=== PATIENT | male | born 1975 | race Caucasian/White ===

== ENCOUNTER 2025-05-18 11:22 | Outpatient (AMB) | payer OTHER, SELFPAY ==
--- NOTE | 2025-05-18 11:28 | A.OFFPC_ITS ---
Vital Signs 05/18/25 11:35 Height 5 ft 8 in Weight 205 lb BMI 31.2 BP 128/80 Blood Pressure Location Rt brachial Position Sitting Pulse 153 H Pulse Source Pulse Oximeter Temp 98 F Temp Source Temporal Artery Scan Pulse Oximetry (%) 98 Oxygen Delivery Method Room Air Intake Visit Reasons: Physical New patient Director Of Institutional Research Required: No Accompanied by: Self / Same As Patient Allergies No Known Allergies Allergy (Verified 05/18/25 11:28) Medication List - Last Reconciled 05/30/25 by BELINDA Gagnon atorvastatin (Lipitor) 20 mg PO DAILY propranolol ER 60 mg PO BEDTIME sertraline 25 mg PO DAILY Tobacco use date assessed: 05/18/25 Dental Screening Dental Screen Date: 05/18/25 Did you have a dental visit in the last 12 months?: No Did you have a dental problem in the last 6 months where you did not have access to dental care?: No HPI HPI Comments History of Present Illness Details The patient is a 50-year-old male with anxiety, tachycardia, HLD and Obesity presenting to establish care and manage anxiety with palpitations. He reports episodes of anxiety, typically triggered by stress or physical overexertion, which occur approximately every month to month and a half. During these episodes, which last 15-25 minutes, he experiences his heart rate increasing to 150-160 bpm, a sensation of his heart jumping out of his chest, a feeling of being hit by a bat in the chest, profuse sweating, and shortness of breath. This is followed by his heart rate dropping to 40 bpm, leading to a near-fainting sensation and occasional brief blackouts. The patient has experienced a significant number of near-fainting episodes, catching himself approximately 25 times in the last three years. He has a histo ry of fainting at age 16, which resulted in a facial injury requiring plastic surgery. He was previously on metoprolol 10 mg once daily, but was switched to immediate-release propranolol 20 mg three times daily due to the fainting spells. He admits to inconsistent adherence, taking the propranolol about twice a day and rarely taking his atorvastatin 20 mg. Past cardiac workup, including a heart monitor and echocardiogram, was recommended a few years ago but not completed due to cost. The patient is overdue for a colonoscopy, which was delayed after he lost his job and insurance. Recent medical issues include a dental injury from his child, which required an implant and was complicated by an abscess. Medical History: - Anxiety with panic attacks - Tachycardia - History of syncope and near-syncope - Hyperlipidemia Patient was informed and verbally consented to the use of an ambient scribe for clinic note documentation during this visit. [facility], [facility] Medical History (Updated 05/30/25 @ 12:49 by BELINDA Gagnon) Annual physical exam Anxiety disorder with panic attacks Hyperlipidemia Medication management Tachycardia Family History (Updated 05/18/25 @ 11:41 by Dai Buckley MA) Mother No problems noted. Father No problems noted. Social History Housing: House Patient Tobacco Use Status: Never used Tobacco e-Cigarette/Vaping Use: Never Used service: No Current occupational status: employed Cognitive needs: No Hearing needs: No Vision needs: No Questionnaire PHQ-9 Over the last 2 weeks, how often have you been bothered by any of the following problems? 1. Little interest or pleasure in doing things: not at all 2. Feeling down, depressed, or hopeless: nearly every day 3. Trouble falling or staying asleep, or sleeping too much: not at all 4. Feeling tired or having little energy: several days 5. Poor appetite or overeating: not at all 6. Feeling bad about yourself - or that you are a failure or have let yourself or your family down: not at all 7. Trouble concentrating on things, such as reading the newspaper or watching television: not at all 8. Moving or speaking so slowly that other people could have noticed. Or the opposite - being so fidgety or restless that you have been moving around a lot more than usual: not at all 9. Thoughts that you would be better off or of hurting yourself in some way: not at all Total score: 4 Depression Screening Interpretation: Negative Depression Screening Done: Yes Source: Developed by Drs. Luis Alfredo Schneider, Nathalia Rm, Ge Bartholomew and colleagues, with an educational abraham from [employer]. Thrive Questionnaire Date Thrive assessed: 05/18/25 I am a: Patient Within the past 12 months, did the food you bought not last and you didn't have the money to get more?: Never true Within the past 12 months, did you worry whether your food would run out before you got money to buy more?: Never true Do you have trouble paying for medicines?: No Do you have trouble getting transportation to medical appointments?: No Do you have trouble paying your heating and electricity bill?: No Do you have trouble taking care of your child, family member or friend?: No Do you have trouble with day-to-day activities such as bathing, preparing meals, shopping, managing finances, etc.?: No Are you currently unemployed and looking for a job?: No Are you interested in more education?: No THRIVE Score: 0 AUDIT C Alcohol Use Questionnaire (AUDIT-C) 1. How often do you have a drink containing alcohol?: Monthly or less 2. How many drinks containing alcohol do you have on a typical day when you are drinking?: 1 or 2 3. How often do you have six or more drinks on one occasion?: Less than monthly Total Score: 2 JOSÉ-7 AMB Questionnaire JOSÉ-7 Date JOSÉ - 7 assessed: 05/18/25 Feeling nervous, anxious, or on edge: 3 = Nearly every day Not being able to stop or control worryin = Not at all Worrying too much about different things: 0 = Not at all Trouble relaxin = Not at all Being so restless that it is hard to sit still: 0 = Not at all Becoming easily annoyed or irritable: 0 = Not at all Feeling afraid as if something awful might happen: 0 = Not at all Total JOSÉ-7 score (0-4 normal; 5-9 mild; 10-14 moderate; 15-21 severe): 3 Source: Developed by Drs. Luis Alfredo Schneider, Nathalia Rm, Ge Bartholomew and colleagues, with an educational abraham from [employer]. JOSÉ-7 Assessment Billing JOSÉ-7 Assessment Tool: JOSÉ-7 Assessment 04355 Review of Systems Narrative - Eyes: Reports one eye has better vision than the other. Denies problems with up-close reading. - Ears: Denies hearing problems. - Cardiovascular: Reports palpitations, chest pain described as feeling hit with a bat, and near-syncope during anxiety episodes. - Respiratory: Reports shortness of breath during anxiety episodes. - Gastrointestinal: Denies constipation, diarrhea, and heartburn. - Musculoskeletal: Reports generalized aches, leg soreness, and knee pain from standing all day. Denies other joint pain. History of leg cramps which have resolved. - Neurological: Reports occasional brief blackouts and near-fainting episodes. - Psychiatric: Reports anxiety triggered by stress and overexertion. - Constitutional: Reports profuse sweating during episodes. Sleeps well. Physical exam (Primary Care) Vital Signs: Last Vital Signs Temp 98 F 05/18/25 11:35 Pulse 153 H 05/18/25 11:35 BP 128/80 05/18/25 11:35 Pulse Ox 98 05/18/25 11:35 Oxygen Delivery Method Room Air 05/18/25 11:35 BMI result Body Mass Index 31.2 GENERAL Well developed, obese, in no apparent distress HEENT Head-Normocephalic Eyes- PERRLA, EOMI, Conjuctiva clear, lids WNL Ears- Canals clear, TMs WNL Mouth/Throat-No lesions, no erythema, no exudate Neck- Supple, No lymphadenopathy, thyroid WNL RESPIRATORY Normal I:E, Clear to auscultation CARDIOVASCULAR Regular, rate and rhythm, No murmurs or rubs GASTROINTESTINAL Soft, nontender, normal bowel sounds, no masses MUSCULOSKELETAL Back- nontender Joints- no swelling or deformity NEUROLOGICAL Gait normal PSYCHIATRIC Oriented to person, place and time Mood and affect -anxious Appearance WNL Speech WNL Thought processes WNL Tobacco/Smoking Status: Tobacco use Status Tobacco use date assessed 05/18/25 05/18/25 11:31 Patient Tobacco Use Status Never used Tobacco 05/18/25 11:31 e-Cigarette/Vaping Use Never Used 05/18/25 11:31 PHQ-9: PHQ-9 Score PHQ-9: Total score 4 05/18/25 13:13 Depression Screening Interpretation: Negative Thrive Assessment: Date of Thrive Assessment Date Thrive assessed 05/18/25 05/18/25 11:31 Coding Level of Care Code New Pt Complex visit Add On G2211 Patient Type New Diagnoses Health care maintenance Z00.00 Anxiety disorder with panic attacks F41.9 Tachycardia R00.0 Hyperlipidemia E78.5 Additional Codes JOSÉ-7 Assessment Billing - JOSÉ-7 Assessment Tool: JOSÉ-7 Assessment 12294 ([id number]) Time Spent (min) 35 Comment Time was spent on chart review, medication reconciliation, H&P, Patient education, orders Assessment & Plan Assessment & Plan (1) Health care maintenance: Code(s): Z00.00 - Encounter for general adult medical examination without abnormal findings Plan: The patient is overdue for colon cancer screening. A referral will be placed for gastroenterology to schedule a colonoscopy. A follow-up visit is scheduled for six weeks to review test results, labs were ordered and assess response to medication changes. (2) Anxiety disorder with panic attacks: Code(s): F41.9 - Anxiety disorder, unspecified Category: Medical Plan: The patient's symptoms of palpitations, chest distress, and near-syncope are consistent with anxiety with panic attacks, potentially exacerbated by rebound tachycardia from inconsistent propranolol use. A low dose of sertraline will be initiated at bedtime to manage anxiety. The patient was counseled that energy drinks can trigger his symptoms and should be avoided. Patient to follow up in 6 weeks or sooner if symptoms persist or worsen. (3) Tachycardia: Comment: heart rate today was 153 Code(s): R00.0 - Tachycardia, unspecified Category: Medical Plan: To better manage heart rate and improve adherence, the medication regimen will be changed from propranolol immediate-release 20 mg three times daily to propranolol extended-release 60 mg once daily at bedtime. To rule out underlying cardiac pathology, a Holter monitor for 48 hours and an echocardiogram will be ordered to evaluate heart rhythm, structure, and function. Patient to follow up in 6 weeks or sooner if symptoms persist or worsen. (4) Hyperlipidemia: Code(s): E78.5 - Hyperlipidemia, unspecified Category: Medical Plan: The patient has a prescription for atorvastatin but reports rare usage. Comprehensive blood work, including a lipid panel, will be obtained to assess current cholesterol levels and guide future management. No refill is needed at this time as the patient has an ample supply. Patient to follow up in 6 weeks or sooner if needed. Plan I discussed with the patient that his symptoms are consistent with anxiety and panic attacks. I explained that inconsistent use of his beta-suzanna, propranolol, can cause rebound tachycardia, which may be worsening his symptoms. We discussed changing his prescription from an immediate-release to an extended- release formula to improve adherence and provide more stable heart rate control. I recommended starting a low dose of sertraline for anxiety. I explained the plan to order two heart tests, a Holter monitor and an echocardiogram, to ensure there are no underlying cardiac issues and described the purpose of each test. I also informed him that a referral will be made for a colonoscopy as he is overdue, and we will check his cholesterol with blood work today. We scheduled a follow-up appointment in six weeks to review all results and assess his progress. Orders: Orders Comprehensive Met. Panel 05/18/25 R00.0 - Tachycardia, unspecified, Z00.00 - Encounter for general adult medical examination without abnormal findings, E78.5 - Hyperlipidemia, unspecified, Z79.899 - Other assisted (current) drug therapy TSH reflex Free T4 05/18/25 R00.0 - Tachycardia, unspecified, E78.5 - Hyperlipidemia, unspecified, Z00.00 - Encounter for general adult medical examination without abnormal findings Complete Blood Count no Diff 05/18/25 Z00.00 - Encounter for general adult m edical examination without abnormal findings, R00.0 - Tachycardia, unspecified Lipid Panel 05/18/25 E78.5 - Hyperlipidemia, unspecified, Z00.00 - Encounter for general adult medical examination without abnormal findings, Z79.899 - Other assisted (current) drug therapy ECG holter monitor 24 hour 05/18/25 R00.0 - Tachycardia, unspecified CA echo transthoracic complete 05/18/25 R00.0 - Tachycardia, unspecified Medications: New propranolol ER 60 mg PO BEDTIME 90 caps 0RF for heart rate sertraline 25 mg PO DAILY 90 tabs 0RF for anxiety Patient Instructions: - We are stopping your current prescription for propranolol 20 mg taken three times a day. - Start taking the new prescription, propranolol extended-release 60 mg, once a day at bedtime. - Start taking the new medication, sertraline, at a low dose once a day at bedtime for anxiety. - Do not throw away your old propranolol pills; keep them just in case. - Avoid drinking energy drinks, as they can trigger your symptoms. - Go to the lab to have your blood drawn today; you do not need to be fasting. - You will be called to schedule two heart tests: a Holter monitor and an echocardiogram. - A referral has been sent to a specialist to schedule a colonoscopy. - Please make a follow-up appointment at the [facility] to see me in about six weeks.
[2025-05-18 11:35] VITALS: BP 128/80; PULSE 153; TEMP 36.6; O2SAT 98; BMI 31.2
== END 2025-05-18 12:06 | disposition home or self-care (01) ==
PROVIDERS: PCP Family Medicine; Visit Provider Physician Assistant Medical
DX: Z00.00 Encounter for general adult medical examination without abnormal findings (principal); F41.9 Anxiety disorder, unspecified; R00.0 Tachycardia, unspecified; E78.5 Hyperlipidemia, unspecified

== ENCOUNTER → 2025-05-18 11:22 | Outpatient (BNVA) | payer OTHER, SELFPAY | PROVIDERS: PCP Family Medicine; Visit Provider Physician Assistant Medical | DX: Z00.00 Encounter for general adult medical examination without abnormal findings (principal); F41.9 Anxiety disorder, unspecified; R00.0 Tachycardia, unspecified; E78.5 Hyperlipidemia, unspecified; Z13.31 Encounter for screening for depression; Z13.39 Encounter for screening examination for other mental health and behavioral disorders | CPT/HCPCS: 96127 ==

== ENCOUNTER 2025-05-18 12:14 | Outpatient (REF) | payer OTHER, SELFPAY ==
[2025-05-18 13:40] LABS: Albumin Level 4.2 g/dL (3.5-5.0); Alkaline Phosphatase 58 U/L (39-117); Anion Gap 11 (12-20); Aspartate Amino Transferase 91 U/L (5-37); Blood Urea Nitrogen 18 mg/dL (9-16); Calcium 9.2 mg/dL (8.4-10.2); Carbon Dioxide 27 mmol/L (22-29); Chloride 112 mmol/L (96-108); Cholesterol 170 mg/dL (<200); Estimated Glomerular Filt Rate > 60; HDL Cholesterol 40 mg/dL (>40); Potassium 4.2 mmol/L (3.3-5.1); Sodium 146 mmol/L (135-145); Total Protein 7.1 g/dL (6.5-8.0); Triglycerides 258 mg/dL (<150)
[2025-05-18 13:47] LABS: Hematocrit 46.2 % (42.0-52.0); Hemoglobin 14.9 g/dl (14.0-18.0); Mean Corpuscular HGB Conc 32.3 g/dl (31.0-36.0); Mean Corpuscular Hemoglobin 29.2 pg (27.0-33.0); Mean Corpuscular Volume 90.4 fL (80.0-98.0); NRBC Abs Auto 0.000 X10*3/uL (0.0-0.012); NRBC Pct Auto 0.0 /100WBC (0.0-0.2); Platelet Count 194 X10*3/uL (160-400); Red Blood Count 5.11 X10*6/uL (4.60-5.80); White Blood Count 6.0 X10*3/uL (4.8-10.8)
[2025-05-18 13:54] LABS: Alanine Aminotransferase 33 U/L (0-40)
== END 2025-05-18 12:15 | disposition home or self-care (01) ==
LOC: HO.10HDL 12:14
PROVIDERS: Visit Provider Physician Assistant Medical
DX: Z00.00 Encounter for general adult medical examination without abnormal findings (principal); R00.0 Tachycardia, unspecified; E78.5 Hyperlipidemia, unspecified; Z79.899 Other long term (current) drug therapy
CPT/HCPCS: 36415; 80053; 80061; 84443; 85027

== ENCOUNTER → 2025-06-22 10:00 | Outpatient (REF) | payer OTHER, SELFPAY ==
--- NOTE | 2025-06-22 10:03 | CA_ITS ---
Transthoracic Echocardiogram Patient (Last, First, Middle): Anand Dodson P Gender: M Date of : 1975 Age: 50 Procedure Date: 06/22/2025 Procedure Type: Transthoracic Echocardiogram Location: OP Height: 172.72 cm Weight: 92.99 kg BSA: 2.07 m2 Heart Rate: bpm BP: 128 / 80 mmHg Application Packaging Consultant: J CARLOS Referring MD: Melva TREVINO Quality Control Supervisor: Joshua De La Rosa MD Symptoms: R00.0 - Tachycardia, unspecified Study Quality: Adequate w contrast ECG Rhythm: Tachycardia Conclusions: - 1. Severely reduced LV ejection fraction 15-20% with mild LVH with impaired relaxation filling pattern 2. Mildly to moderately reduced RV systolic function by TAPSE 3. Mild biatrial enlargement 4. Normal cardiac valvular Dopplers 5. Mildly dilated ascending aorta 3.8 cm 6. Normal measured RV systolic pressure with mildly elevated right atrial pressures 7. No gross pericardial effusion Findings Procedure Information Contrast agent, definity, is being given per protocol without apparent complications. Left Ventricle Normal left ventricular cavity size. There is mildly increased left ventricular wall thickness. The left ventricular systolic function is severely decreased. The visually estimated ejection fraction is between 15 20%. There is severe global hypokinesis. Spectral Doppler is indicative of an impaired relaxation filling pattern. Right Ventricle Mildly increased right ventricular cavity size. There is mild to moderately decreased right ventricular systolic function. Atria Mild biatrial enlargement. There is no evidence of interatrial shunt. Aortic Valve Normal aortic valve structure and function. There is no aortic valve stenosis. There is no aortic valve regurgitation. Mitral Valve Normal mitral valve structure and function. There is trace mitral valve regurgitation. There is no mitral valve stenosis. Pulmonic Valve The pulmonic valve is likely normal. Tricuspid Valve Normal tricuspid valve structure. There is mild tricuspid valve regurgitation. The right ventricular systolic pressure is 26 mmHg. Mildly elevated right atrial pressure. There is no evidence of pulmonary hypertension. Great Vessels The pulmonary artery was not well visualized. There is mild dilatation of the ascending aorta measuring 3.80 cm. Venous The inferior vena cava is mildly dilated and collapses greater than 50% with inspiration. Pericardium/Pleural There is no evidence of pericardial effusion. Prior Study Comparison No prior study available for comparison. Measurements 2D Linear Measurements IVSd: 1.20 0.6-0.9/0.6-1.0 cm LVIDd: 4.52 3.9-5.3/4.2-5.9 cm LVIDd Index: 2.18 2.4-3.2/2.2-3.1 cm/m2 LVIDs: 3.65 2.0-3.6 cm LVPWd: 1.03 0.7-1.1 cm LA Diam: 4.10 2.7-3.8/3.0-4.0 cm LAIDs Index: 1.98 1.5-2.3 cm/m2 LV Mass: 223.81 67-162/88-224 g LV Mass Index: 108.12 43-95/49-115 g/m2 LVOT Diam: 2.20 3.0+(-)1.3 cm 2D Systolic Function EF 4C: 15.20 >55% Mitral Valve MV Pk E: 0.70 MV PK A: 0.95 MV Decel Time: 64.00 E/A: 0.70 E'Lateral: 11.40 E'Medial: 8.27 E/E' Med: 8.40 E/E' Lat: 6.10 PHT: 19.00 MVA PHT: 11.58 Decel [place]: 10.88 Aortic Valve AoV Pk Marcelino: 0.87 AoV Mn Marcelino: 0.67 AoV VTI: 0.13 AoV Pk Grad: 3.00 Aov Mn Grad: 2.00 CHANDNI Cont.VTI: 3.05 LVOT LVOT Pk Marcelino: 0.71 LVOT Mn Marcelino: 0.51 LVOT VTI: 0.11 LVOT Pk Grad: 2.00 LVOT Mn Grad: 1.00 LVOT Diam: 2.20 LVOT Area: 3.80 Diastolic Function MV Pk E: 0.70 MV Pk A: 0.95 E/A: 0.70 E'Medial: 8.27 E/E' Med: 8.40 E' Laterial: 11.40 E/E' Lat: 6.10 Right Ventricle TAPSE (mm): 15.10 TVS' Marcelino: 9.88 Tricuspid Valve TR Pk Marcelino: 2.10 TR Pk Grad: 18.00 RA Press: 8.00 RVSP: 26.00 Great Vessels Aorta Sinus of Valsalva: 3.83 2.0-3.[address] [place]: 3.38 1.7-3.4 cm Ao Asc: 3.80 2.1-3.4 cm Ao Arch: 3.40 Updated in Other Vendor System with Status of Final Joshua De La Rosa MD electronically signed on 06/22/2025 12:40:48 PM with status of Final
--- OUTSIDE RECORDS SUMMARY | 2025-06-22 12:10 | XMS_ITS ---
Author Organization Unknown ENCOUNTERS Encounter Performer Location Date Diagnosis Diagnosis Status Emergency [facility] [address] [place] [id number] Pre Admit [facility] [address] [id number] *Note: Encounters from your own facility or health system may be excluded. Allergies, Adverse Reactions, Alerts Allergen Type Severity Identification Date Medications Name Date Quantity Days Supplied GPI Number
== END ==
LOC: HO.CARD 10:00
PROVIDERS: PCP Physician Assistant Medical; Visit Provider Physician Assistant Medical
DX: R00.0 Tachycardia, unspecified (principal)
CPT/HCPCS: 93306; Q9957

== ENCOUNTER → 2025-06-22 10:03 | Outpatient (BNV) | payer OTHER, SELFPAY | PROVIDERS: PCP Physician Assistant Medical; Visit Provider Internal Medicine Cardiovascular Disease | DX: I48.91 Unspecified atrial fibrillation (principal); I45.10 Unspecified right bundle-branch block; I77.810 Thoracic aortic ectasia; I51.7 Cardiomegaly; I42.2 Other hypertrophic cardiomyopathy | CPT/HCPCS: 93010; 93306 ==

== ENCOUNTER 2025-06-22 11:31 | Observation (INO) | payer OTHER, SELFPAY ==
[2025-06-22] VITALS (10 sets, daily range): BP systolic 96–129; BP diastolic 65–97; PULSE 68–142; RESP 12–20; TEMP 36.9–37.2; O2SAT 96–99; BMI 31.3
--- NOTE | 2025-06-22 | ECG_ITS ---
Test Reason : tachycardia Blood Pressure : */* mmHG Vent. Rate : 139 BPM Atrial Rate : 278 BPM P-R Int : * ms QRS Dur : 120 ms QT Int : 292 ms P-R-T Axes : 87 -34 144 degrees QTcB Int : 444 ms Atrial flutter with 2:1 A-V conduction Left axis deviation Right bundle branch block Inferior infarct , age undetermined T wave abnormality, consider lateral ischemia Abnormal ECG No previous ECGs available Referred By: Generic ED Physician Electronically Signed By: Crescencio Rawls
--- NOTE | ~2025-06-22 | XR_ITS ---
EXAMINATION: XR CHEST CLINICAL INFORMATION: palpitations COMPARISON: None available. TECHNIQUE: Frontal view of the chest was obtained. FINDINGS: The cardiac, hilar, and mediastinal contours are normal. The lungs are clear bilaterally. No pneumothorax or effusion. No focal osseous or soft tissue abnormality. XR/XR chest 1V IMPRESSION: Normal chest. Electronically signed by: Sher Zavala MD 06/22/2025 12:48 PM EST
--- NOTE | 2025-06-22 11:55 | ED_ITS ---
HPI - General Adult General Chief complaint: Recheck/Abnormal Lab/Rx Stated complaint: from cardiology Time Seen by Provider: 06/22/25 11:54 Source: patient, RN notes reviewed and old records reviewed Mode of arrival: ambulatory Limitations: no limitations History of Present Illness ED Provider: Demar Moss PA-C HPI narrative: 50 yo male with history of anxiety, tachycardia, HLD, obesity who presents to the ER from Cardiology office where he was having and Echocardiogram with concern for reduced EF and tachycardia. He states years ago he was told he had a fast heart rate they thought was due to anxiety so he has been on propranolol. His PCP retired and he has not seen anyone until last week when he was started on Zoloft for concern of anxiety contributing to tachycardia. He reports he wears a smart watch that monitors his HR and its been trending up over the year, now well over 100. he frequently goes up into the 180s and that is when he is symptomatic with palpitations. when it breaks and goes back down he feels a cold wave over him and feels like he is going to pass out. He syncopized once in the last 3 years. He works at [employer] and does 20,000 steps per day. His HR is always up with exertion and his resting HR is only <100 when he is not working. He denies any associated SOB, leg swelling, dizziness, diaphroesis or chest pain. He reports chest pain when his HR is >180 and is over exerting himself (had episode 5 months ago). He denies drug use, drinks socially 1x per week. Non-smoker. MD complaint: tachycardia, palpitations Onset (ago): year(s) Location: chest Radiation: non-radiation Severity: moderate Exacerbating factors: other (exwertion) Treatments prior to arrival: none Related Data Home Medications ?Medication ?Instructions ?Recorded ?Confirmed atorvastatin 20 mg tablet (Lipitor) 20 mg PO BEDTIME 1 07/18/24 06/22/25 sertraline 25 mg tablet 25 mg PO BEDTIME for anxiety 06/22/25 06/22/25 Previous Rx's ?Medication ?Instructions ?Recorded propranolol 60 mg capsule,24 60 mg PO BEDTIME for hear t rate 05/18/25 hr,extended release #90 caps Allergies Allergy/AdvReac Type Severity Reaction Status Date / Time No Known Allergies Allergy Verified 06/22/25 11:37 Review of Systems 2 Review of Systems: Yes all other systems are reviewed and are negative [facility] Past Medical History Medical History (Updated 06/22/25 @ 14:10 by BELINDA Mccrary) Anxiety disorder with panic attacks Medication management Hyperlipidemia Tachycardia Annual physical exam Family History Family History (Updated 05/18/25 @ 11:41 by Dai Buckley MA) Mother No problems noted. Father No problems noted. Social History Social History Housing: House Patient Tobacco Use Status: Never used Tobacco e-Cigarette/Vaping Use: Never Used Advance Directives: No Advance Directives Information Provided: Yes Do you have a plan to hurt others: No Plan service: No Current occupational status: employed Cognitive needs: No Hearing needs: No Vision needs: No Physical Exam ED Exam Exam: Appearance: Alert. Oriented X3. No acute distress. Head: normocephalic, atraumatic. Eyes: Pupils equal, round and reactive to light. ENT: Pharynx normal. No tonsillar swelling or exudate. Neck: Normal inspection. Neck supple. No JVD CVS: Tachycardic, HR 140s, regular rhythm, no apprecaited murmue. Pulses normal. Respiratory: No respiratory distress. Breath sounds normal. Abdomen: Soft and nontender. +BS x4 Skin: Skin warm and dry. Normal skin color. Normal skin turgor. No rashes. Extremities: No lower extremity edema. No joint swelling. Neuro/psych: Oriented X 3. No motor deficit. No sensory deficit. CN II-XII intact. Normal speech and cognition. Vital Signs: Vital Signs - 24 hr 06/22/25 11:34 06/22/25 11:57 06/22/25 12:16 Temperature 99 F Pulse Rate 138 H 138 H 142 H Respiratory Rate 16 16 14 Blood Pressure 129/97 H 126/89 Pulse Oximetry 98 97 97 Oxygen Delivery Method Room Air Room Air Room Air 06/22/25 14:15 Temperature 98.4 F Pulse Rate 142 H Respiratory Rate 16 Blood Pressure 123/94 H Pulse Oximetry 99 Oxygen Delivery Method Room Air BMI result Body Mass Index 31.3 Medications Administered Generic Name Dose Route Start Last Admin Trade Name Freq PRN Reason Stop Dose Admin Acetaminophen 650 mg 06/22/25 15:33 06/22/25 17:04 Acetaminophen 325 Mg Tablet PO 650 mg Q6H PRN Administration Pain, Mild 1-3,fever,headache Amiodarone HCl 400 mg 06/22/25 14:05 06/22/25 15:19 Amiodarone Hcl 200 Mg Tablet PO 400 mg BID YAHIR Administration Sodium Chloride 3 ml 06/22/25 16:00 06/22/25 17:05 0.9 % Sodium Chloride Flush 3 Ml Syringe IVFLUSH 3 ml QSHIFT YAHIR Administration Discontinued Medications Generic Name Dose Route Start Last Admin Trade Name Carlosq PRN Reason Stop Dose Admin Amiodarone HCl 400 mg 06/22/25 15:33 06/22/25 16:27 Amiodarone Hcl 200 Mg Tablet PO 06/22/25 15:34 Not Given ONCE ONE Apixaban 5 mg 06/22/25 14:10 06/22/25 15:20 Apixaban 5 Mg Tablet PO 5 mg BID YAHIR Administration Metoprolol Tartrate 5 mg 06/22/25 12:12 06/22/25 12:15 Metoprolol Tartrate 5 Mg/5 Ml Vial IVPUSH 06/22/25 12:13 5 mg ONCE ONE Administration Protocol Procedures Procedure Narrative Procedure Narrative: EMERGENCY ULTRASOUND INTERPRETATION-Limited Echocardiography [This study was ordered, performed, and interpreted by myself. The study reveals: Impression: Poor LV function, reduced RV function/RV dysfunction without dilation. No pericardial effusion [Emergent Cardiac for Indication: Views Used: PLAX, PSSA, A4, SX, IVC Pericardial Effusion/Tamponade Findings: NONE RV Dilation (> LV diam in 4ch apical): None however some RV systolic dysfunction is noted Global LV Fxn: Poor IVC Dilation and Resp Variation: Plethoric Performed by: MD Rimma Images were stored CPT:59725] Medical Decision Making Medical Decision Making MDM Narrative: 50-year-old male with history of HLD, tachycardia, anxiety presenting from the echo lab with concerning findings of tachycardia and reduced ejection fraction. Patient arrives to the ER with heart rates in the 140s, EKG showing atrial flutter with two-to-one conduction. His blood pressure is stable with SBP 110- 120. He is asymptomatic, denies any palpitations. He reports palpitations occur when his heart rates get up into the 180s. He is on propranolol and has been compliant. He is not anticoagulated. IV established and given 5 mg of IV Lopressor. Limited edside echo performed with Dr. Vasquez showing global hypokinesis of both LV and RV. No RV dilation. Dr. Rawls consulted for recommendations 14:05 - HR remain 140s. remains asymptomatic. BP stable. Dr. Rawls came to evaluate- recommending PO amio 400 BID, eliquis and NPO after midnight for plan YADIEL cardioversion tomorrow. will admit to [facility] tele Differential Diagnosis Differential Diagnoses: The differential diagnosis associated with the presentation includes aflutter, afib, SVT, tachycardia induced cardiomyopathy, takutsubos cardiomyopathy, PE Admission/Observation Consideration of admission/observation: Escalation of care including admission/observation considered Consult Healthcare Provider Management of the patient was discussed with: Hospitalist and Field Contact Technician Dr. Richey Lab Data [facility] Lab Attestation statement: I reviewed the patient's lab results. elevated proBNP, negative troponin, no anemia 06/22/25 11:52 06/22/25 11:52 Labs: Lab Results 06/22/25 Range/Units 11:52 WBC 7.3 (4.8-10.8) X10*3/uL RBC 5.54 (4.60-5.80) X10*6/uL Hgb 16.2 (14.0-18.0) g/dl Hct 49.5 (42.0-52.0) % MCV 89.4 (80.0-98.0) fL MCH 29.2 (27.0-33.0) pg MCHC 32.7 (31.0-36.0) g/dl RDW 13.5 (11.0-16.0) % Plt Count 169 (160-400) X10*3/uL MPV 10.2 (9.4-12.4) fL Immature Gran % (Auto) 0.3 (0.0-0.4) % Neut % (Auto) 70.0 (45-73) % Lymph % (Auto) 19.0 L (20-40) % [place] % (Auto) 7.0 (2-11) % Eos % (Auto) 3.0 (0-4) % Baso % (Auto) 0.7 (0-2) % Lymph # (Auto) 1.4 (1.2-4.9) X10*3/uL [place] # (Auto) 0.5 (0.1-1.2) X10*3/uL Eos # (Auto) 0.2 (0.0-0.4) X10*3/uL Baso # (Auto) 0.1 (0.0-0.2) X10*3/uL Abs Immat Gran (auto) 0.02 (0.00-0.03) X10*3/uL Absolute Neuts (auto) 5.1 (2.0-8.3) x10*3/uL Absolute Nucleated RBC 0.000 (0.0-0.012) X10*3/uL Nucleated RBC % (auto) 0.0 (0.0-0.2) /100WBC PT 12.4 (11.2-13.5) SEC INR 1.0 (0.9-1.1) APTT 31.3 (26.7-34.1) SEC Sodium 139 (135-145) mmol/L Potassium 4.6 (3.3-5.1) mmol/L Chloride 106 (96-108) mmol/L Carbon Dioxide 25 (22-29) mmol/L Anion Gap 13 (12-20) BUN 21 H (9-16) mg/dL Creatinine 0.87 (0.5-1.4) mg/dL Estim Creat Clear Calc 110.0 Estimated GFR > 60 Random Glucose 112 (60-115) mg/dL Calcium 9.3 (8.4-10.2) mg/dL Magnesium 2.1 (1.6-2.6) mg/dL Total Bilirubin 1.6 H (0.0-1.0) mg/dL AST 33 (5-37) U/L ALT 22 (0-40) U/L Alkaline Phosphatase 67 (39-117) U/L Troponin I High Sens < 2.7 (<3.5-35.0) ng/L NT-Pro-B Natriuret Pep 1376.2 H (<300) pg/mL Total Protein 7.5 (6.5-8.0) g/dL Albumin 4.6 (3.5-5.0) g/dL TSH 1.16 (0.32-4.0) uIU/mL Influenza Type A (PCR) NEGATIVE (Negative) Influenza Type B (PCR) NEGATIVE (Negative) RSV RNA Qual (PCR) NEGATIVE (Negative) SARS-CoV-2 RNA (RT-PCR) NEGATIVE (Negative) Independent Interpretation I performed an independent interpretation of an: EKG Interpretation: atrial flutter with 2-1 AV conduction, ventricular rate 139 beats per minute, he with inversions in lead 1, V3 to V6 Critical Care Time Critical Care Time Critical Care Time: Yes Total Critical Care Time: 44 Attestation: I have personally provided critical care time exclusive of time spent on separately billable procedures. Time includes review of lab data, radiology results, discussion with consultants, and monitoring for potential decompensation. Intervention performed as documented. Discharge Plan Discharge Clinical Impression: Atrial flutter with rapid ventricular response Cardiomyopathy Qualifiers: Cardiomyopathy type: unspecified Qualified Code(s): I42.9 - Cardiomyopathy, unspecified Patient Disposition: Admitted As Inpatient
[2025-06-22 12:00] LABS: MANUAL DIFF FLAG NO
[2025-06-22 12:02] LABS: Hematocrit 49.5 % (42.0-52.0); Hemoglobin 16.2 g/dl (14.0-18.0); Imm Gran Abs Auto 0.02 X10*3/uL (0.00-0.03); Imm Gran Pct Auto 0.3 % (0.0-0.4); Lymphocytes Absolute Auto 1.4 X10*3/uL (1.2-4.9); Mean Corpuscular HGB Conc 32.7 g/dl (31.0-36.0); Mean Corpuscular Hemoglobin 29.2 pg (27.0-33.0); Mean Corpuscular Volume 89.4 fL (80.0-98.0); NRBC Abs Auto 0.000 X10*3/uL (0.0-0.012); NRBC Pct Auto 0.0 /100WBC (0.0-0.2); Platelet Count 169 X10*3/uL (160-400); Red Blood Count 5.54 X10*6/uL (4.60-5.80); White Blood Count 7.3 X10*3/uL (4.8-10.8)
[2025-06-22 12:11] LABS: INTERNATIONAL NORM RATIO 1.0 (0.9-1.1); Prothrombin Time 12.4 SEC (11.2-13.5)
[2025-06-22 12:13] LABS: Partial Thromboplastin Time 31.3 SEC (26.7-34.1)
[2025-06-22 12:16] LABS: Alanine Aminotransferase 22 U/L (0-40); Albumin Level 4.6 g/dL (3.5-5.0); Alkaline Phosphatase 67 U/L (39-117); Anion Gap 13 (12-20); Aspartate Amino Transferase 33 U/L (5-37); Blood Urea Nitrogen 21 mg/dL (9-16); Calcium 9.3 mg/dL (8.4-10.2); Carbon Dioxide 25 mmol/L (22-29); Chloride 106 mmol/L (96-108); Creatinine Clr Calc Pharmacy 110.0; Estimated Glomerular Filt Rate > 60; Magnesium 2.1 mg/dL (1.6-2.6); Potassium 4.6 mmol/L (3.3-5.1); Sodium 139 mmol/L (135-145); Total Protein 7.5 g/dL (6.5-8.0)
[2025-06-22 12:22] LABS: NT Pro B Type Natriuretic Pept 1376.2 pg/mL (<300)
[2025-06-22 12:28] LABS: Troponin-I High Sensitivity < 2.7 ng/L (<3.5-35.0)
[2025-06-22 12:43] LABS: Resp Syncy Virus RNA Qual PCR NEGATIVE (Negative); SARS COV2 PCR INHOUSE NEGATIVE (Negative)
--- NOTE | 2025-06-22 14:29 | PHA.MEDREC ---
Addendum entered by Katharine Damian RPh 06/22/25 14:48: MED REC REVIEWED BY [facility] Original Note: Pharmacy Consult ? Medication Reconciliation Pharmacy verified med rec done by nursing. Spoke with pt and he verified his medications. Pt takes his meds at bedtime; updated that on med list.
--- NOTE | 2025-06-22 15:18 | MHC.EDTECH ---
pt independently transferred to hospital bed. call perez and bedside table within reach.
--- NOTE | 2025-06-22 16:35 | HO.NURTONUR ---
Pt is a 50yo M who was sent to the ED by cardiology. Pt was having a routine echo and found to be tachycardic in 140s. Pt states he has been dealing with elevated HR for a few months. Pt's PCP has been following this complaint and ordered echo and holter. Pt denies SOB/CP. States he only knows his HR is elevated bc of his watch. BP stable. HR remains in 140s. Pt to be admitted overnight and undergo cardioversion tomorrow. Pt a/ox4. Ambulates independently. Independent with all ADLs. Cardiac diet ordered. Pt to be NPO at CO. 20gRFA, 22gLAC.
--- NOTE | 2025-06-22 16:59 | P.HPHOSP_ITS ---
History of Present Illness Date of Service: 06/22/25 Chief Complaint: Atrial flutter 50-year-old male with past medical history significant for HLD, tachycardia who presented to the ED after being referred from cardiology office for tachycardia. Patient states that he has been having increased heart rate for the past couple of years, given medications with heart rate maintaining in the 100s range.. Patient was given IV Lopressor with mild improvement. Cardiology was consulted, suggested on p.o. amiodarone 400 mg b.i.d., Eliquis and NPO after midnight for YADIEL cardioversion tomorrow. Review of Systems 2 Review of Systems: Fourteen point review of systems obtained, negative except as stated above. [facility] Medical History (Updated 06/22/25 @ 14:10 by BELINDA Mccrary) Anxiety disorder with panic attacks Medication management Hyperlipidemia Tachycardia Annual physical exam Family History (Updated 05/18/25 @ 11:41 by Dai Buckley MA) Mother No problems noted. Father No problems noted. Social History Housing: House Patient Tobacco Use Status: Never used Tobacco e-Cigarette/Vaping Use: Never Used Advance Directives: No Advance Directives Information Provided: Yes Do you have a plan to hurt others: No Plan service: No Current occupational status: employed Cognitive needs: No Hearing needs: No Vision needs: No Meds Allergies Allergy/AdvReac Type Severity Reaction Status Date / Time No Known Allergies Allergy Verified 06/22/25 11:37 Active Medications: Current Medications Acetaminophen (Acetaminophen 325 Mg Tablet) 650 mg PO Q6H PRN PRN Reason: Pain, Mild 1-3,fever,headache Amiodarone HCl (Amiodarone Hcl 200 Mg Tablet) 400 mg PO BID YAHIR Last Admin: 06/22/25 15:19 Dose: 400 mg Apixaban (Apixaban 5 Mg Tablet) 5 mg PO BID YAHIR Atorvastatin Calcium (Atorvastatin Calcium 20 Mg Tablet) 20 mg PO BEDTIME YAHIR Calcium Carbonate (Calcium Carbonate 750 Mg Tab.Chew) 750 mg PO Q4H PRN PRN Reason: Heartburn Magnesium Hydroxide (Milk Of Magnesia 30 Ml Oral.Susp) 30 ml PO DAILY PRN PRN Reason: Constipation Melatonin (Melatonin 3 Mg Tablet) 6 mg PO BEDTIME PRN PRN Reason: Insomnia Ondansetron HCl (Ondansetron Hcl 4 Mg/2 Ml Vial) 4 mg IVPUSH Q8H PRN PRN Reason: Nausea and Vomiting Sertraline HCl (Sertraline Hcl 25 Mg Tablet) 25 mg PO BEDTIME YAHIR Sodium Chloride (0.9 % Sodium Chloride Flush 3 Ml Syringe) 3 ml IVFLUSH QSHIFT YAHIR Home Medications ?Medication ?Instructions ?Recorded ?Confirmed ?Last Taken ?Type atorvastatin 20 mg tablet (Lipitor) 20 mg PO BEDTIME 1 07/18/24 06/22/25 06/21/25 History sertraline 25 mg tablet 25 mg PO BEDTIME for anxiety 06/22/25 06/22/25 06/21/25 History Physical Exam 2 Vital Signs and Narrative: Vital Signs: Last Vital Signs Temp 98.4 F 06/22/25 14:15 Pulse 141 H 06/22/25 16:12 Resp 12 06/22/25 16:12 BP 116/80 06/22/25 16:12 Pulse Ox 98 06/22/25 16:12 O2 Del Method Room Air 06/22/25 16:12 BMI result Body Mass Index 31.3 General: AxOx3, No acute distress Head: AT/NC ENT: Moist mucous membranes Neck: supple CVS; irregularly irregular rate and rhythm Lungs: Clear bilateral breath sounds, no wheezes or crackles Abd: Soft non tender, non distended Ext: No edema and no calf tenderness MSK: moving all 4 limbs Skin: No cyanosis or edema Psych: Cooperative with exam Neurology: no focal deficit Results Labs 06/22/25 11:52 06/22/25 11:52 Labs: Laboratory Results - last 24 hr 06/22/25 11:52 MCV 89.4 MCH 29.2 MCHC 32.7 RDW 13.5 Plt Count 169 MPV 10.2 Immature Gran % (Auto) 0.3 Neut % (Auto) 70.0 Lymph % (Auto) 19.0 L [place] % (Auto) 7.0 Eos % (Auto) 3.0 Baso % (Auto) 0.7 Lymph # (Auto) 1.4 [place] # (Auto) 0.5 Eos # (Auto) 0.2 Baso # (Auto) 0.1 Abs Immat Gran (auto) 0.02 Absolute Neuts (auto) 5.1 Absolute Nucleated RBC 0.000 Nucleated RBC % (auto) 0.0 PT 12.4 INR 1.0 APTT 31.3 Anion Gap 13 Estim Creat Clear Calc 110.0 Estimated GFR > 60 Random Glucose 112 Calcium 9.3 Magnesium 2.1 Total Bilirubin 1.6 H AST 33 ALT 22 Alkaline Phosphatase 67 Troponin I High Sens < 2.7 NT-Pro-B Natriuret Pep 1376.2 H Total Protein 7.5 Albumin 4.6 Influenza Type A (PCR) NEGATIVE Influenza Type B (PCR) NEGATIVE RSV RNA Qual (PCR) NEGATIVE SARS-CoV-2 RNA (RT-PCR) NEGATIVE Imaging Radiologist's Impressions: Impressions Chest X-Ray 06/22/25 12:40 IMPRESSION: Normal chest. Electronically signed by: Sher Zavala MD 06/22/2025 12:48 PM [facility] Assessment and Plan (1) Atrial flutter with rapid ventricular response: Status: Acute (2) Hyperlipidemia: Status: Acute Plan Assessment: 50-year-old male who presented to hospital after being referred from cardiology office for elevated heart rate. With plans on YADIEL with cardioversion tomorrow. Atrial flutter HFrEF, with TTE done on 06/22 showing EF of 15-20% with mild LVH with impaired relaxation filling pattern EKG reviewed We will continue with amiodarone 400 mg p.o. b.i.d., initiated apixaban 5 mg p.o. b.i.d. Urine drug screen ordered, TSH ordered. Cardiology consulted, plans on YAIDEL with cardioversion tomorrow JOSÉ -continue sertraline 25 mg q.h.s. for GERD HLD -continue atorvastatin 20 mg q.h.s., monitor for any signs of myopathies FEN: NI, replete as needed, cardiac GI PPx: NI DVT PPx: Eliquis Code Status: Full Code Disposition: Patient to be admitted overnight observation at this time for planned YADIEL cardioversion tomorrow. Total time managing care of this patient today: 75 minutes. Quality Stroke Does the patient have a stroke diagnosis?: No VTE Prior VTE?: No VTE Risk Level:: Medical - moderate - high VTE Device Contraindication: Treatment Not Indicated VTE Drug Contraindication: N/A - Med Ordered
[2025-06-22] MEDS: 0.9 % Sodium Chloride Flush 3 ML SYRINGE IVFLUSH (17:05)
--- NOTE | 2025-06-22 17:36 | PM.CNCAR ---
History of Present Illness History of Present Illness Date of Service: 06/22/25 Requesting physician: Christiano Cool Chief complaint: aflutter w RVR, cardiomyopathy Narrative: [age] year gentleman presenting with atrial flutter. He has longstanding history of tachycardia which was treated previously with propranolol as well as sertraline. Was thought that he has panic attacks. He is saying that with [employer] watch she has persistent tachycardia in 140s for months. He was referred for echocardiography which showed severe biventricular function and was sent to the emergency department. He is denying any chest pain or shortness of breath currently. No orthopnea or PND. He is in atrial flutter with heart rate in 140s. He has not been taking any medications before. No bleeding concerns in the past. He drinks socially. No family history of heart disease. [facility] Past Medical History Medical History (Updated 06/22/25 @ 14:10 by BELINDA Mccrary) Anxiety disorder with panic attacks Medication management Hyperlipidemia Tachycardia Annual physical exam Family History Family History (Updated 05/18/25 @ 11:41 by Dai Buckley MA) Mother No problems noted. Father No problems noted. Social History Social History Housing: House Patient Tobacco Use Status: Never used Tobacco e-Cigarette/Vaping Use: Never Used Advance Directives: No Advance Directives Information Provided: Yes Do you have a plan to hurt others: No Plan service: No Current occupational status: employed Cognitive needs: No Hearing needs: No Vision needs: No Meds Allergies Allergy/AdvReac Type Severity Reaction Status Date / Time No Known Allergies Allergy Verified 06/22/25 11:37 Active Medications: Current Medications Acetaminophen (Acetaminophen 325 Mg Tablet) 650 mg PO Q6H PRN PRN Reason: Pain, Mild 1-3,fever,headache Last Admin: 06/22/25 17:04 Dose: 650 mg Amiodarone HCl (Amiodarone Hcl 200 Mg Tablet) 400 mg PO BID YAHIR Last Admin: 06/22/25 15:19 Dose: 400 mg Apixaban (Apixaban 5 Mg Tablet) 5 mg PO BID YAHIR Atorvastatin Calcium (Atorvastatin Calcium 20 Mg Tablet) 20 mg PO BEDTIME YAHIR Calcium Carbonate (Calcium Carbonate 750 Mg Tab.Chew) 750 mg PO Q4H PRN PRN Reason: Heartburn Magnesium Hydroxide (Milk Of Magnesia 30 Ml Oral.Susp) 30 ml PO DAILY PRN PRN Reason: Constipation Melatonin (Melatonin 3 Mg Tablet) 6 mg PO BEDTIME PRN PRN Reason: Insomnia Metoprolol Tartrate (Metoprolol Tartrate 25 Mg Tablet) 25 mg PO BID YAHIR; Protocol Ondansetron HCl (Ondansetron Hcl 4 Mg/2 Ml Vial) 4 mg IVPUSH Q8H PRN PRN Reason: Nausea and Vomiting Sertraline HCl (Sertraline Hcl 25 Mg Tablet) 25 mg PO BEDTIME YAHIR Sodium Chloride (0.9 % Sodium Chloride Flush 3 Ml Syringe) 3 ml IVFLUSH QSHIFT YAHIR Last Admin: 06/22/25 17:05 Dose: 3 ml Home Medications ?Medication ?Instructions ?Recorded ?Confirmed ?Last Taken ?Type atorvastatin 20 mg tablet (Lipitor) 20 mg PO BEDTIME 05/18/25 06/22/25 06/21/25 History sertraline 25 mg tablet 25 mg PO BEDTIME for anxiety 06/22/25 06/22/25 06/21/25 History Physical Exam Vital Signs: Vital Signs: Last Vital Signs Temp 98.4 F 06/22/25 14:15 Pulse 141 H 06/22/25 16:12 Resp 12 06/22/25 16:12 BP 116/80 06/22/25 16:12 Pulse Ox 98 06/22/25 16:12 O2 Del Method Room Air 06/22/25 16:12 BMI result Body Mass Index 31.3 GENERAL APPEARANCE: in no acute distress, pleasant. NECK: no carotid bruit, mild jugular venous distention. SKIN: no suspicious lesions, warm and dry. HEART: no murmurs, regular rate and rhythm. Tachycardic. LUNGS: clear to auscultation bilaterally. ABDOMEN: soft, nontender. EXTREMITIES: no edema. PERIPHERAL PULSES: equal. NEUROLOGIC: No gross deficits, AAO X 3 Objective Labs and Meds 06/22/25 11:52 06/22/25 11:52 Lab results: Laboratory Results - last 24 hr 06/22/25 11:52 WBC 7.3 RBC 5.54 Hgb 16.2 Hct 49.5 MCV 89.4 MCH 29.2 MCHC 32.7 RDW 13.5 Plt Count 169 MPV 10.2 Immature Gran % (Auto) 0.3 Neut % (Auto) 70.0 Lymph % (Auto) 19.0 L [place] % (Auto) 7.0 Eos % (Auto) 3.0 Baso % (Auto) 0.7 Lymph # (Auto) 1.4 [place] # (Auto) 0.5 Eos # (Auto) 0.2 Baso # (Auto) 0.1 Abs Immat Gran (auto) 0.02 Absolute Neuts (auto) 5.1 Absolute Nucleated RBC 0.000 Nucleated RBC % (auto) 0.0 PT 12.4 INR 1.0 APTT 31.3 Sodium 139 Potassium 4.6 Chloride 106 Carbon Dioxide 25 Anion Gap 13 BUN 21 H Creatinine 0.87 Estim Creat Clear Calc 110.0 Estimated GFR > 60 Random Glucose 112 Calcium 9.3 Magnesium 2.1 Total Bilirubin 1.6 H AST 33 ALT 22 Alkaline Phosphatase 67 Troponin I High Sens < 2.7 NT-Pro-B Natriuret Pep 1376.2 H Total Protein 7.5 Albumin 4.6 Influenza Type A (PCR) NEGATIVE Influenza Type B (PCR) NEGATIVE RSV RNA Qual (PCR) NEGATIVE SARS-CoV-2 RNA (RT-PCR) NEGATIVE Imaging Radiologist's impression: Impressions Chest X-Ray 06/22/25 12:40 IMPRESSION: Normal chest. Electronically signed by: Sher Zavala MD 06/22/2025 12:[address] [facility] Assessment and Plan (1) Cardiomyopathy: Qualifiers: Cardiomyopathy type: unspecified Qualified Code(s): I42.9 - Cardiomyopathy, unspecified Status: Acute (2) Atrial flutter with rapid ventricular response: Status: Acute Plan 50-year-old gentleman with longstanding history of tachycardia presenting with atrial flutter and cardiomyopathy. 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 Not clinically in heart failure. Adding amiodarone 400 mg twice a day and Eliquis 5 mg twice a day. Add metoprolol 25 mg twice a day. Keep NPO after midnight for potential YADIEL cardioversion tomorrow. Once cardioverted we will refer him for electrophysiology assessment and atrial flutter ablation. Thank you for allowing me to participate in the care of your patient. Please feel free to contact me if you have any questions. Procedures Date of Service Date of Service: 06/22/25
[2025-06-22 18:01] LABS: Thyroid Stimulating Hormone 1.16 uIU/mL (0.32-4.0)
[2025-06-22 20:17] LABS: Appearance Urine Clear; Glucose Urine UA Negative (Negative); PH 6.0 (5.0-9.0); Specific Gravity - Urine 1.015 (1.005-1.025)
[2025-06-22 20:25] LABS: Cannabinoid Screen Urine Not Detected (Not Detect)
[2025-06-23] VITALS (14 sets, daily range): BP systolic 77–138; BP diastolic 46–86; PULSE 56–128; RESP 12–20; TEMP 36.1–36.6; O2SAT 96–100; BMI 30.2
--- NOTE | 2025-06-23 | ECG_ITS ---
Test Reason : post cardioversion Blood Pressure : */* mmHG Vent. Rate : 58 BPM Atrial Rate : 58 BPM P-R Int : 162 ms QRS Dur : 108 ms QT Int : 428 ms P-R-T Axes : 28 -3 112 degrees QTcB Int : 420 ms Sinus bradycardia Left atrial enlargement Incomplete right bundle branch block Left ventricular hypertrophy ( R in aVL ) Inferior infarct ST & T wave abnormality, consider lateral ischemia Abnormal ECG When compared with ECG of 22-Jun-2025 11:56, Sinus rhythm has replaced flutter Referred By: Crescencio Rawls Electronically Signed By: Crescencio Rawls
--- NOTE | 2025-06-23 00:08 | HO.NURTONUR ---
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
[2025-06-23 07:39] LABS: Hematocrit 45.2 % (42.0-52.0); Hemoglobin 14.9 g/dl (14.0-18.0); Mean Corpuscular HGB Conc 33.0 g/dl (31.0-36.0); Mean Corpuscular Hemoglobin 29.3 pg (27.0-33.0); Mean Corpuscular Volume 88.8 fL (80.0-98.0); NRBC Abs Auto 0.000 X10*3/uL (0.0-0.012); NRBC Pct Auto 0.0 /100WBC (0.0-0.2); Platelet Count 150 X10*3/uL (160-400); Red Blood Count 5.09 X10*6/uL (4.60-5.80); White Blood Count 5.5 X10*3/uL (4.8-10.8)
[2025-06-23 07:57] LABS: Anion Gap 11 (12-20); Blood Urea Nitrogen 18 mg/dL (9-16); Calcium 9.4 mg/dL (8.4-10.2); Carbon Dioxide 26 mmol/L (22-29); Chloride 107 mmol/L (96-108); Creatinine Clr Calc Pharmacy 129.0; Estimated Glomerular Filt Rate > 60; Potassium 4.1 mmol/L (3.3-5.1); Sodium 140 mmol/L (135-145)
[2025-06-23] MEDS: 0.9 % Sodium Chloride Flush 3 ML SYRINGE IVFLUSH ×2 (08:21→17:25)
--- NOTE | 2025-06-23 08:30 | HO.PM.IMPN ---
Subjective Subjective Date of Service: 06/23/25 Interval History: Patient seen and examined at bedside this morning, patient states that he is feeling well, plans on kiah with cardioversion later today. Denies any chest pain at this time. Review of Systems Fourteen point review of systems obtained, negative except as stated above. Review of Systems: Yes all other systems are reviewed and are negative Physical Exam Exam: Exam: General: AxOx3, No acute distress Head: AT/NC ENT: Moist mucous membranes Neck: supple CVS; Irregular rate and rhythm Lungs: Clear bilateral breath sounds, no wheezes or crackles Abd: Soft non tender, non distended Ext: No edema and no calf tenderness MSK: moving all 4 limbs Skin: No cyanosis or edema Psych: Cooperative with exam Neurology: no focal deficit Vital Signs: Vital Signs: Last Vital Signs Temp 97.2 F 06/23/25 07:36 Pulse 83 06/23/25 07:36 Resp 16 06/23/25 07:36 BP 123/80 06/23/25 07:36 Pulse Ox 96 06/23/25 07:36 O2 Del Method Room Air 06/23/25 07:36 BMI result Body Mass Index 30.2 Objective Data Active Medications Acetaminophen (Acetaminophen 325 Mg Tablet) 650 mg PO Q6H PRN PRN Reason: Pain, Mild 1-3,fever,headache Last Admin: 06/22/25 17:04 Dose: 650 mg Documented By: DUNG Amiodarone HCl (Amiodarone Hcl 200 Mg Tablet) 400 mg PO BID [facility] Last Admin: 06/23/25 08:21 Dose: 400 mg Documented By: MILLER Apixaban (Apixaban 5 Mg Tablet) 5 mg PO BID [facility] Last Admin: 06/23/25 08:21 Dose: 5 mg Documented By: MILLER Atorvastatin Calcium (Atorvastatin Calcium 20 Mg Tablet) 20 mg PO BEDTIME [facility] Last Admin: 06/22/25 21:13 Dose: 20 mg Documented By: N-MATTE Calcium Carbonate (Calcium Carbonate 750 Mg Tab.Chew) 750 mg PO Q4H PRN PRN Reason: Heartburn Magnesium Hydroxide (Milk Of Magnesia 30 Ml Oral.Susp) 30 ml PO DAILY PRN PRN Reason: Constipation Melatonin (Melatonin 3 Mg Tablet) 6 mg PO BEDTIME PRN PRN Reason: Insomnia Metoprolol Tartrate (Metoprolol Tartrate 25 Mg Tablet) 25 mg PO BID [facility]; Protocol Last Admin: 06/23/25 08:20 Dose: 25 mg Documented By: MILLER Ondansetron HCl (Ondansetron Hcl 4 Mg/2 Ml Vial) 4 mg IVPUSH Q8H PRN PRN Reason: Nausea and Vomiting Sertraline HCl (Sertraline Hcl 25 Mg Tablet) 25 mg PO BEDTIME [facility] Last Admin: 06/22/25 21:16 Dose: 25 mg Documented By: JS-NATHANIEL Sodium Chloride (0.9 % Sodium Chloride Flush 3 Ml Syringe) 3 ml IVFLUSH QSHIFT [facility] Last Admin: 06/23/25 08:21 Dose: 3 ml Documented By: MILLER Labs 06/23/25 06:36 06/23/25 06:36 Labs: Laboratory Results - last 24 hr 06/22/25 06/22/25 06/23/25 11:52 20:08 06:36 MCV 89.4 88.8 MCH 29.2 29.3 MCHC 32.7 33.0 RDW 13.5 13.7 Plt Count 169 150 L MPV 10.2 10.9 Immature Gran % (Auto) 0.3 Neut % (Auto) 70.0 Lymph % (Auto) 19.0 L [place] % (Auto) 7.0 Eos % (Auto) 3.0 Baso % (Auto) 0.7 Lymph # (Auto) 1.4 [place] # (Auto) 0.5 Eos # (Auto) 0.2 Baso # (Auto) 0.1 Abs Immat Gran (auto) 0.02 Absolute Neuts (auto) 5.1 Absolute Nucleated RBC 0.000 0.000 Nucleated RBC % (auto) 0.0 0.0 PT 12.4 INR 1.0 APTT 31.3 Anion Gap 13 11 L Estim Creat Clear Calc 110.0 129.0 Estimated GFR > 60 > 60 Random Glucose 112 108 Calcium 9.3 9.4 Magnesium 2.1 Total Bilirubin 1.6 H AST 33 ALT 22 Alkaline Phosphatase 67 Troponin I High Sens < 2.7 NT-Pro-B Natriuret Pep 1376.2 H Total Protein 7.5 Albumin 4.6 TSH 1.16 Urine Color Yellow Urine Appearance Clear Urine pH 6.0 Ur Specific [place] 1.015 Urine Protein Negative Urine Glucose (UA) Negative Urine Ketones Negative Urine Blood Negative Urine Nitrite Negative Ur Leukocyte Esterase Negative Urine RBC 0-2 Urine WBC 0-5 Ur Squamous Epith Cells 0-2 Urine Bacteria None Seen Hyaline Casts 0-2 Urine Opiates Screen Not Detected Ur Buprenorphine Scrn Not Detected Ur Oxycodone Screen Not Detected Urine Methadone Screen Not Detected Urine Fentanyl Screen Not Detected Ur Barbiturates Screen Not Detected Ur Phencyclidine Scrn Not Detected Ur Amphetamines Screen Not Detected U Benzodiazepines Scrn Not Detected Urine Cocaine Screen Not Detected U Marijuana (THC) Screen Not Detected Influenza Type A (PCR) NEGATIVE Influenza Type B (PCR) NEGATIVE RSV RNA Qual (PCR) NEGATIVE SARS-CoV-2 RNA (RT-PCR) NEGATIVE Assessment and Plan (1) Cardiomyopathy: Status: Acute (2) Atrial flutter with rapid ventricular response: Status: Acute Plan Assessment: 50-year-old male who presented to hospital after being referred from cardiology office for elevated heart rate. With plans on KIAH with cardioversion tomorrow. Atrial flutter HFrEF, with TTE done on 06/22 showing EF of 15-20% with mild LVH with impaired relaxation filling pattern EKG reviewed We will continue with amiodarone 400 mg p.o. b.i.d., apixaban 5 mg p.o. b.i.d Cardiology consulted, plans on KIAH later today, with plans on following up as outpatient with EP. JOSÉ -continue sertraline 25 mg q.h.s. for GERD HLD -continue atorvastatin 20 mg q.h.s., monitor for any signs of myopathies FEN: NI, replete as needed, cardiac GI PPx: NI DVT PPx: Eliquis Code Status: Full Code Disposition: KIAH cardioversion later today. Total time managing care of this patient today: 35 minutes. Quality Stroke Does the patient have a stroke diagnosis?: No VTE Prior VTE?: No VTE Risk Level:: Medical - moderate - high VTE Device Contraindication: Treatment Not Indicated VTE Drug Contraindication: N/A - Med Ordered
--- NOTE | 2025-06-23 09:44 | MHC.CM.PN ---
Yelena 06/23/25, Pt. is functionally independent, he does not use home health services or DME. PCP confirmed: BELINDA Gagnno, HCP discussed, he declined to complete form at this time, Pt. is able to arrange transport home at [place], DCP: home, self care, CM to follow for DC needs.
--- NOTE | 2025-06-23 11:02 | PM.PNCARD ---
Subjective Subjective Date of Service: 06/23/25 Interval history: Seen examined at bedside. In atrial flutter with better rate controlled with amiodarone and metoprolol. He is on anticoagulation. He is for YADIEL cardioversion today. Physical Exam Vital Signs: Last Vital Signs Temp 97.2 F 06/23/25 07:36 Pulse 83 06/23/25 07:36 Resp 16 06/23/25 07:36 BP 123/80 06/23/25 07:36 Pulse Ox 96 06/23/25 07:36 O2 Del Method Room Air 06/23/25 07:36 BMI result Body Mass Index 30.2 GENERAL APPEARANCE: in no acute distress, pleasant. NECK: no carotid bruit, mild jugular venous distention. SKIN: no suspicious lesions, warm and dry. HEART: no murmurs, irregular rate and rhythm. LUNGS: clear to auscultation bilaterally. ABDOMEN: soft, nontender. EXTREMITIES: no edema. PERIPHERAL PULSES: equal. NEUROLOGIC: No gross deficits, AAO X 3 Objective Labs and Meds 06/23/25 06:36 06/23/25 06:36 Lab results: Laboratory Results - last 24 hr 06/22/25 06/22/25 06/23/25 11:52 20:08 06:36 WBC 7.3 5.5 RBC 5.54 5.09 Hgb 16.2 14.9 Hct 49.5 45.2 MCV 89.4 88.8 MCH 29.2 29.3 MCHC 32.7 33.0 RDW 13.5 13.7 Plt Count 169 150 L MPV 10.2 10.9 Immature Gran % (Auto) 0.3 Neut % (Auto) 70.0 Lymph % (Auto) 19.0 L [place] % (Auto) 7.0 Eos % (Auto) 3.0 Baso % (Auto) 0.7 Lymph # (Auto) 1.4 [place] # (Auto) 0.5 Eos # (Auto) 0.2 Baso # (Auto) 0.1 Abs Immat Gran (auto) 0.02 Absolute Neuts (auto) 5.1 Absolute Nucleated RBC 0.000 0.000 Nucleated RBC % (auto) 0.0 0.0 PT 12.4 INR 1.0 APTT 31.3 Sodium 139 140 Potassium 4.6 4.1 Chloride 106 107 Carbon Dioxide 25 26 Anion Gap 13 11 L BUN 21 H 18 H Creatinine 0.87 0.73 Estim Creat Clear Calc 110.0 129.0 Estimated GFR > 60 > 60 Random Glucose 112 108 Calcium 9.3 9.4 Magnesium 2.1 Total Bilirubin 1.6 H AST 33 ALT 22 Alkaline Phosphatase 67 Troponin I High Sens < 2.7 NT-Pro-B Natriuret Pep 1376.2 H Total Protein 7.5 Albumin 4.6 TSH 1.16 Urine Color Yellow Urine Appearance Clear Urine pH 6.0 Ur Specific [place] 1.015 Urine Protein Negative Urine Glucose (UA) Negative Urine Ketones Negative Urine Blood Negative Urine Nitrite Negative Ur Leukocyte Esterase Negative Urine RBC 0-2 Urine WBC 0-5 Ur Squamous Epith Cells 0-2 Urine Bacteria None Seen Hyaline Casts 0-2 Urine Opiates Screen Not Detected Ur Buprenorphine Scrn Not Detected Ur Oxycodone Screen Not Detected Urine Methadone Screen Not Detected Urine Fentanyl Screen Not Detected Ur Barbiturates Screen Not Detected Ur Phencyclidine Scrn Not Detected Ur Amphetamines Screen Not Detected U Benzodiazepines Scrn Not Detected Urine Cocaine Screen Not Detected U Marijuana (THC) Screen Not Detected Influenza Type A (PCR) NEGATIVE Influenza Type B (PCR) NEGATIVE RSV RNA Qual (PCR) NEGATIVE SARS-CoV-2 RNA (RT-PCR) NEGATIVE Imaging Radiologist's impression: Impressions Chest X-Ray 06/22/25 12:40 IMPRESSION: Normal chest. Electronically signed by: Sher Zavala MD 06/22/2025 12:48 PM [facility] Progress Note: A&P Assessment and plan (1) Cardiomyopathy: Status: Acute (2) Atrial flutter with rapid ventricular response: Status: Acute Plan [age] year gentleman presenting with atrial flutter and cardiomyopathy. Echocardiography done as outpatient has shown EF 15-20% with [id number] right ventricular dysfunction. He has longstanding history of tachycardia and was treated with propranolol and was also given sertraline for management of panic attacks. 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 He is on amiodarone, metoprolol and apixaban. We will cardiovert him today with YADIEL. Would add Jardiance and Entresto after that. Thank you for allowing me to participate in the care of your patient. Please feel free to contact me if you have any questions. Time Spent With Patient Time: Total time managing care of this patient today ____ minutes. Progress Note: Quality Stroke Does the patient have a stroke diagnosis?: No Procedures Date of Service Date of Service: 06/23/25
--- NOTE | 2025-06-23 12:25 | MHC.SHP ---
Pre-Procedural Eval Section A - 24 Hr Update-Section A only Date of Service: 06/23/25 The patient is an INPATIENT: Yes The patient has been examined within 24 hours of the surgical procedure. The History & Physical has been completed within 30 days and I have reviewed it.: Yes Section B - Complete if H&P > 30 days Chief Complaint: aflutter w RVR, cardiomyopathy Allergies: Allergies Allergy/AdvReac Type Severity Reaction Status Date / Time No Known Allergies Allergy Verified 06/22/25 11:37 Plan Diagnosis/Plan: Unchanged I have reviewed the history and physical and performed a pertinent physical examination on my patient. No changes have occurred unless specified. Time Spent With Patient Time: Total time managing care of this patient today ____ minutes.
[2025-06-23] MEDS: Lactated Ringers 1,000 ML 50 ML IVCONT (12:49)
--- NOTE | 2025-06-23 13:00 | CA_ITS ---
Transesophageal Echocardiogram Patient (Last, First, Middle): Anand Dodson P Gender: Male Date of : 1975 Age: 50 Procedure Date: 06/23/2025 Procedure Type: Transesophageal Echocardiogram Location: [facility] [place] Height: 172.72 cm Weight: 89.81 kg BSA: 2.04 m2 Heart Rate: bpm BP: 107 / 68 mmHg Technical Support Intern: SB Referring MD: Crescencio Rawls MD Symptoms: Atrial flutter Conclusion: ??? Normal left ventricular cavity size. The left ventricular systolic function is severely decreased. The visually estimated ejection fraction is between 20-25%. ??? Normal right ventricular cavity size and systolic function. ??? There is no evidence of a thrombus in the left atrial appendage. There is no evidence of interatrial shunt by color Doppler. LA is dilated. RA is dilated. ??? We proceeded with cardioversion. Findings Left Ventricle Normal left ventricular cavity size. The left ventricular systolic function is severely decreased. The visually estimated ejection fraction is between 20-25%. Diastolic function is indeterminate on the basis of available data. Right Ventricle Normal right ventricular cavity size and systolic function. Atria There is no evidence of a thrombus in the left atrial appendage. There is no evidence of interatrial shunt by color Doppler. LA is dilated. RA is dilated. Aortic Valve There is a normal trileaflet aortic valve. There is no aortic valve stenosis. There is no aortic valve regurgitation. Mitral Valve The mitral valve appears normal. There is trace mitral valve regurgitation. There is no mitral valve stenosis. Pulmonic Valve The pulmonic valve is likely normal. Tricuspid Valve Normal tricuspid valve structure. There is trace tricuspid valve regurgitation. Great Vessels All visible segments of the aorta are normal in size. Pericardium/Pleural There is no evidence of pericardial effusion. Updated by Crescencio Rawls on 04:45 PM with Status of Final Crescencio Rawls MD electronically signed on 06/24/2025 4:45:25 PM with status of Final
--- NOTE | 2025-06-23 13:23 | HO.ANESPROP2 ---
[facility] Active Problems Active Problems: All Active Problems Cardiomyopathy (Acute) Atrial flutter with rapid ventricular response (Acute) Anxiety disorder with panic attacks (Acute) Medication management (Acute) Hyperlipidemia (Acute) Tachycardia (Acute) Annual physical exam (Acute) Past Medical History Medical History Anxiety disorder with panic attacks Medication management Hyperlipidemia Tachycardia Annual physical exam Family History Family History Mother No problems noted. Father No problems noted. Surgical History Surgical History H/O eye surgery History of nasal surgery History of Problems with Anesthesia: No Social History Social History Household Members: Family Housing: House Do you presently have visiting nurse or other home services: No Patient Tobacco Use Status: Never used Tobacco e-Cigarette/Vaping Use: Never Used service: No Current occupational status: employed Cognitive needs: No Hearing needs: No Vision needs: No Meds Allergies Allergy/AdvReac Type Severity Reaction Status Date / Time No Known Allergies Allergy Verified 06/22/25 11:37 Active Medications: Current Medications Acetaminophen (Acetaminophen 325 Mg Tablet) 650 mg PO Q6H PRN PRN Reason: Pain, Mild 1-3,fever,headache Last Admin: 06/22/25 17:04 Dose: 650 mg Amiodarone HCl (Amiodarone Hcl 200 Mg Tablet) 400 mg PO BID [facility] Last Admin: 06/23/25 08:21 Dose: 400 mg Apixaban (Apixaban 5 Mg Tablet) 5 mg PO BID [facility] Last Admin: 06/23/25 08:21 Dose: 5 mg Atorvastatin Calcium (Atorvastatin Calcium 20 Mg Tablet) 20 mg PO BEDTIME [facility] Last Admin: 06/22/25 21:13 Dose: 20 mg Calcium Carbonate (Calcium Carbonate 750 Mg Tab.Chew) 750 mg PO Q4H PRN PRN Reason: Heartburn Lactated Ringer's (Lr) 1,000 mls @ 50 mls/hr IVCONT .Q20H [facility] Last Admin: 06/23/25 12:49 Dose: 50 mls/hr Magnesium Hydroxide (Milk Of Magnesia 30 Ml Oral.Susp) 30 ml PO DAILY PRN PRN Reason: Constipation Melatonin (Melatonin 3 Mg Tablet) 6 mg PO BEDTIME PRN PRN Reason: Insomnia Metoprolol Tartrate (Metoprolol Tartrate 25 Mg Tablet) 25 mg PO BID [facility]; Protocol Last Admin: 06/23/25 08:20 Dose: 25 mg Ondansetron HCl (Ondansetron Hcl 4 Mg/2 Ml Vial) 4 mg IVPUSH Q8H PRN PRN Reason: Nausea and Vomiting Sertraline HCl (Sertraline Hcl 25 Mg Tablet) 25 mg PO BEDTIME [facility] On Hold: 06/23/25 09:01 Last Admin: 06/22/25 21:16 Dose: 25 mg Sodium Chloride (0.9 % Sodium Chloride Flush 3 Ml Syringe) 3 ml IVFLUSH QSHIFT [facility] Last Admin: 06/23/25 08:21 Dose: 3 ml Home Medications ?Medication ?Instructions ?Recorded ?Confirmed ?Last Taken ?Type atorvastatin 20 mg tablet (Lipitor) 20 mg PO BEDTIME 05/18/25 06/22/25 06/21/25 History sertraline 25 mg tablet 25 mg PO BEDTIME for anxiety 06/22/25 06/22/25 06/21/25 History Exam Height,Weight and Vital Signs: Height 5 ft 8 in Weight 90.1 kg Last Vital Signs Temp 97.4 F 06/23/25 12:17 Pulse 68 06/23/25 12:17 Resp 16 06/23/25 12:17 BP 107/77 06/23/25 12:17 Pulse Ox 98 06/23/25 12:17 O2 Del Method Room Air 06/23/25 12:17 Pertinent Lab Results Pertinent Lab Results: Laboratory Tests 06/22/25 06/22/25 06/23/25 11:52 20:08 06:36 WBC 7.3 5.5 RBC 5.54 5.09 Hgb 16.2 14.9 Hct 49.5 45.2 MCV 89.4 88.8 MCH 29.2 29.3 MCHC 32.7 33.0 RDW 13.5 13.7 Plt Count 169 150 L MPV 10.2 10.9 Immature Gran % (Auto) 0.3 Neut % (Auto) 70.0 Lymph % (Auto) 19.0 L [place] % (Auto) 7.0 Eos % (Auto) 3.0 Baso % (Auto) 0.7 Lymph # (Auto) 1.4 [place] # (Auto) 0.5 Eos # (Auto) 0.2 Baso # (Auto) 0.1 Abs Immat Gran (auto) 0.02 Absolute Neuts (auto) 5.1 Absolute Nucleated RBC 0.000 0.000 Nucleated RBC % (auto) 0.0 0.0 PT 12.4 INR 1.0 APTT 31.3 Sodium 139 140 Potassium 4.6 4.1 Chloride 106 107 Carbon Dioxide 25 26 Anion Gap 13 11 L BUN 21 H 18 H Creatinine 0.87 0.73 Estim Creat Clear Calc 110.0 129.0 Estimated GFR > 60 > 60 Random Glucose 112 108 Calcium 9.3 9.4 Magnesium 2.1 Total Bilirubin 1.6 H AST 33 ALT 22 Alkaline Phosphatase 67 Troponin I High Sens < 2.7 NT-Pro-B Natriuret Pep 1376.2 H Total Protein 7.5 Albumin 4.6 TSH 1.16 Urine Color Yellow Urine Appearance Clear Urine pH 6.0 Ur Specific [place] 1.015 Urine Protein Negative Urine Glucose (UA) Negative Urine Ketones Negative Urine Blood Negative Urine Nitrite Negative Ur Leukocyte Esterase Negative Urine RBC 0-2 Urine WBC 0-5 Ur Squamous Epith Cells 0-2 Urine Bacteria None Seen Hyaline Casts 0-2 Urine Opiates Screen Not Detected Ur Buprenorphine Scrn Not Detected Ur Oxycodone Screen Not Detected Urine Methadone Screen Not Detected Urine Fentanyl Screen Not Detected Ur Barbiturates Screen Not Detected Ur Phencyclidine Scrn Not Detected Ur Amphetamines Screen Not Detected U Benzodiazepines Scrn Not Detected Urine Cocaine Screen Not Detected U Marijuana (THC) Screen Not Detected Influenza Type A (PCR) NEGATIVE Influenza Type B (PCR) NEGATIVE RSV RNA Qual (PCR) NEGATIVE SARS-CoV-2 RNA (RT-PCR) NEGATIVE Airway Mallampati Class: III (sargent) TM Dist: >3cm Neck ROM: Full Partial: Upper Loose/Missing/Broken Teeth: Yes and Upper Heart: RRR Lungs: CTA Assessment and Plan Assessment Anesthesia Assessment: Anesthesia Plan Discussed and Chart Reviewed Final Anesthetic Review History of Problems with Anesthesia: No NPO: Yes ASA Class: III Final Preanesthetic Review: Meds/Allgs Chart Reviewed, Consent Obtained/Reviewed and Anes Risks/Benef Reviewed Patient Risk: Intermediate Procedure Risk: Intermediate Anesthetic Plan Anesthetic Plan: MAC: Disposition: Standard PACU
[2025-06-24 03:10] VITALS: BP 100/57; PULSE 61; RESP 18; TEMP 36.1; O2SAT 97
[2025-06-24 07:05] VITALS: BP 104/63; PULSE 63; RESP 16; TEMP 36.2; O2SAT 98
--- NOTE | 2025-06-24 09:22 | HO.POSTANES ---
Post Anesthesia Evaluation Post Anesthesia Evaluation Date of Service: 06/24/25 Vital Signs: Vital Signs Temp Pulse Resp BP Pulse Ox O2 Del Method 06/24/25 07:05 97.2 F 63 16 104/63 98 Room Air 06/24/25 03:10 96.9 F 61 18 100/57 L 97 Room Air 06/23/25 23:57 96.9 F 68 18 104/66 98 Room Air Anesthesia: Monitored Mental Status: Awake Pain Control: Satisfactory Nausea/Vomiting: None Hydration: Adequate Anesthesia-Related Issues: No Anes. Related Issues
--- NOTE | 2025-06-24 10:12 | PM.PNCARD ---
Subjective Subjective Date of Service: 06/24/25 Interval history: Seen examined at bedside. Status post cardioversion. Physical Exam Vital Signs: Last Vital Signs Temp 97.2 F 06/24/25 07:05 Pulse 63 06/24/25 07:05 Resp 16 06/24/25 07:05 BP 104/63 06/24/25 07:05 Pulse Ox 98 06/24/25 07:05 O2 Del Method Room Air 06/24/25 07:05 O2 Flow Rate 5 06/23/25 14:30 BMI result Body Mass Index 30.2 GENERAL APPEARANCE: in no acute distress, pleasant. NECK: no carotid bruit, mild jugular venous distention. SKIN: no suspicious lesions, warm and dry. HEART: no murmurs, bradycardic. LUNGS: clear to auscultation bilaterally. ABDOMEN: soft, nontender. EXTREMITIES: no edema. PERIPHERAL PULSES: equal. NEUROLOGIC: No gross deficits, AAO X 3 Objective Labs and Meds 06/23/25 06:36 06/23/25 06:36 Progress Note: A&P Assessment and plan (1) Cardiomyopathy: Status: Acute (2) Atrial flutter with rapid ventricular response: Status: Acute Plan [age] year gentleman with atrial flutter and tachycardia induced cardiomyopathy. He is now status post cardioversion and is in sinus rhythm. Continue amiodarone 400 mg twice a day for next 10 days. After that he should be changed to 200 mg daily. Continue metoprolol 25 mg twice a day. Continue Jardiance 10 mg daily. Apixaban 5 mg twice a day. Stop propranolol and sertraline at discharge. He has been referred to electrophysiology for ablation in once he gets ablation we will stop the amiodarone. Thank you for allowing me to participate in the care of your patient. Please feel free to contact me if you have any questions. Time Spent With Patient Time: Total time managing care of this patient today ____ minutes. Progress Note: Quality Stroke Does the patient have a stroke diagnosis?: No Procedures Date of Service Date of Service: 06/24/25
[2025-06-24 11:23] VITALS: BP 103/58; PULSE 66; RESP 16; TEMP 36.4; O2SAT 98
--- NOTE | 2025-06-24 11:47 | PM.DS ---
DS: Providers Provider Date of admission: 06/22/25 14:17 Date of discharge: 06/24/25 Primary care physician: BELINDA Gagnon Consults: 06/22/25 12:51 Consult to Cardiology Stat Consulting [place] [facility] Reason for consultation: aflutter, cardiomyopathy Has provider been notified: Yes 06/22/25 15:32 Consult to Cardiology Routine Consulting Provider[place] [facility] Reason for consultation: AFlutter w/ RVR; cardioversion tomorrow DS: Diagnosis Discharge Diagnosis (1) Cardiomyopathy: Status: Acute (2) Atrial flutter with rapid ventricular response: Status: Acute DS: Summary Hospital Course Hospital Course: Assessment: 50-year-old male who presented to hospital after being referred from cardiology office for elevated heart rate. Patient underwent YADIEL with cardioversion on 06/23, with subsequent sinus rhythm achieved. After procedure patient had episodes of hypotension, which has resolved, however blood pressure low normal. Patient at this time denies any chest pain, shortness of breath, palpitations, blurry vision. Atrial flutter status post cardioversion on 06/23 Tachycardia induced cardiomyopathy HFrEF, with TTE done on 06/22 showing EF of 15-20% with mild LVH with impaired relaxation filling pattern EKG reviewed We will continue with metoprolol tartrate 25mg twice day, amiodarone 400 mg p.o. b.i.d times 10 days EoT 07/04, later transitioned to 200mg once a day on 07/05., apixaban 5 mg p.o. b.i.d We will initiate Jardiance 10 mg q.d., Entresto on hold given low normal blood pressures, we will initiate an outpatient once blood pressures allow Follow up with Cardiology as an outpatient JOSÉ -continue sertraline 25 mg q.h.s. for JOSÉ HLD -continue atorvastatin 20 mg q.h.s., monitor for any signs muscle pain Time Attestation Discharge Coordination Time (in mins): 35 minutes Quality: Safe Use of Opioids Does Pt have an Active Cancer Diagnosis on the Problem List?: No Quality: Stroke Does the patient have a stroke diagnosis?: No Physical Exam Exam: Exam: General: AxOx3, No acute distress Head: AT/NC ENT: Moist mucous membranes Neck: supple CVS; RRR. no murmurs Lungs: Clear bilateral breath sounds, no wheezes or crackles Abd: Soft non tender, non distended Ext: No edema and no calf tenderness MSK: moving all 4 limbs Skin: No cyanosis or edema Psych: Cooperative with exam Neurology: no focal deficit Vital Signs: Vital Signs: Last Vital Signs Temp 97.6 F 06/24/25 11:23 Pulse 66 06/24/25 11:23 Resp 16 06/24/25 11:23 BP 103/58 L 06/24/25 11:23 Pulse Ox 98 06/24/25 11:23 O2 Del Method Room Air 06/24/25 11:23 O2 Flow Rate 5 06/23/25 14:30 BMI result Body Mass Index 30.2 Discharge Plan Discharge Patient Disposition: Home, Self-Care Discharge Diagnosis: Jeddo flutter Tachycardia induced cardiomopathy HFrEF Referrals: Crescencio Rawls MD [Physician, Cardiology] - 2 Weeks Melva Potts PA [Primary Care Provider, Internal Medicine] - 1 Week Discharge Medications: New amiodarone 200 mg Tablet 200 mg PO DAILY 60 Days Qty: 60 0RF Rx Instructions: Start medication on 07/05 (day after completing amiodarone 400mg twice a day), take only one pill a day amiodarone 200 mg Tablet 400 mg PO BID 10 Days Qty: 40 0RF metoprolol tartrate 25 mg Tablet 25 mg PO BID 60 Days Qty: 120 0RF Protocol: Hold for SBP/HR < HOLD for SBP < : 90 HOLD for HR < : 60 Eliquis 5 mg Tablet 5 mg PO BID 60 Days Qty: 120 0RF Jardiance 10 mg Tablet 10 mg PO DAILY 60 Days Qty: 60 0RF Continued sertraline 25 mg tablet 25 mg PO BEDTIME atorvastatin [Lipitor] 20 mg tablet 20 mg PO BEDTIME Discontinued propranolol 60 mg capsule,extended release 24 hr 60 mg PO BEDTIME Qty: 90 0RF Discharge Orders: Discharge Order (Routine); Ordered 06/24/25 Ordered By: Christiano Cool Activity on Discharge: As tolerated Stand Alone Forms: Patient Portal Discharge page Print Language: Faroese Care Plan Goals: Continue amiodarone 400mg twice a day with EoT 07/04, then start amiodarone 200mg once a day Initiate Jardiance 10mg once a day Continue Metoprolol tartrate 25mg twice a day follow up with cardiology as outpatient Health Concerns: Atrial flutter Tachycardia induced cardiomyopathy Plan of Treatment: Continue amiodarone 400mg twice a day with EoT 07/04, then start amiodarone 200mg once a day Initiate Jardiance 10mg once a day Continue Metoprolol tartrate 25mg twice a day follow up with cardiology as outpatient Blood pressure low normal, will defer entresto at this time, to consider initiating as outpatient once BP allows Assessment: 50-year-old male who presented to hospital after being referred from cardiology office for elevated heart rate. Patient underwent YADIEL with cardioversion on 06/23, with subsequent sinus rhythm achieved. After procedure patient had episodes of hypotension, which has resolved, however blood pressure low normal. Patient Instructions: Atrial Flutter (DC), Electrophysiology Study (DC)
--- NOTE | 2025-06-24 12:27 | MHC.CM.PN ---
Patient is medically cleared to discharge today. He will go home selfcare. He will arrange for a ride home.
--- NOTE | 2025-06-24 16:45 | HO.CARDIVERS ---
Cardioversion Procedure Note Cardioversion Date of Procedure: 06/23/25 Ordering Provider: Crescencio Rawls Performing Provider: Crescencio Rawls Indication for Procedure: Atrial flutter, cardiomyopathy YADIEL findings (if YADIEL Performed): No LA or MARI thrombus. History: 50 male with new onset atrial flutter and severe LV dysfunction. Consent: Verbal and Written consent was obtained from the patient before starting. The patient was made aware of the risk of stroke, failure to achieve sinus rhythm, arrhythmia. Procedure: After consent obtained, defib pads were attached and the patient was sedated by the anesthesia team. Once adequate sedation achieved, single synchronized shock of 150 J was given. The rhythm converted to sinus. Complications: None Recommendations: c/w amiodarone and apixaban. Referring to EP for flutter ablation.
== END 2025-06-24 13:10 | disposition home or self-care (01) ==
LOC: HO.ED 12:40 → HO.EDOVER 14:26 → HO.IMC 23:38
PROVIDERS: Internal Medicine Cardiovascular Disease; Admitting Provider Student in an Organized Health Care Education/Training Program; Emergency Provider Emergency Medicine Emergency Medical Services; PCP Physician Assistant Medical; Visit Provider Student in an Organized Health Care Education/Training Program
PROC: (CPT 93312; principal; 2025-06-23 13:00)
PROC: 5A2204Z Restoration of Cardiac Rhythm, Single (ICD-10-PCS; 2025-06-23 13:00)
DX: I42.9 Cardiomyopathy, unspecified (principal); R00.0 Tachycardia, unspecified; I48.92 Unspecified atrial flutter; E78.5 Hyperlipidemia, unspecified; F41.9 Anxiety disorder, unspecified; Z03.818 Encounter for observation for suspected exposure to other biological agents ruled out; Z79.899 Other long term (current) drug therapy
CPT/HCPCS: 36415; 71045; 80048; 80053; 80307; 81001; 83735; 83880; 84443; 84484; 85025; 85027; 85610; 85730; 87637; 92960; 93005; 96360; 96361; 99222; 99285; J0616; J2250; J7120

== ENCOUNTER → 2025-06-22 12:38 | Outpatient (BNV) | payer OTHER, SELFPAY | PROVIDERS: Emergency Provider Emergency Medicine Emergency Medical Services; PCP Physician Assistant Medical; Visit Provider Radiology Diagnostic Radiology | DX: R00.2 Palpitations (principal) | CPT/HCPCS: 71045 ==

== ENCOUNTER 2025-06-22 14:17 | Outpatient (BNV) | payer OTHER, SELFPAY | END 2025-06-23 13:00 | PROVIDERS: Admitting Provider Student in an Organized Health Care Education/Training Program; Emergency Provider Emergency Medicine Emergency Medical Services; PCP Physician Assistant Medical; Visit Provider Internal Medicine Cardiovascular Disease | DX: I45.10 Unspecified right bundle-branch block (principal); I51.7 Cardiomegaly; R00.1 Bradycardia, unspecified; I48.92 Unspecified atrial flutter | CPT/HCPCS: 93010; 93312; 93325 ==

== ENCOUNTER → 2025-06-22 14:17 | Outpatient (BNV) | payer OTHER, SELFPAY | PROVIDERS: Admitting Provider Student in an Organized Health Care Education/Training Program; Emergency Provider Emergency Medicine Emergency Medical Services; PCP Physician Assistant Medical; Visit Provider Internal Medicine Cardiovascular Disease | DX: I42.9 Cardiomyopathy, unspecified (principal); I48.92 Unspecified atrial flutter | CPT/HCPCS: 99233 ==

== ENCOUNTER → 2025-06-22 14:17 | Outpatient (BNV) | payer OTHER, SELFPAY | PROVIDERS: Admitting Provider Student in an Organized Health Care Education/Training Program; Emergency Provider Emergency Medicine Emergency Medical Services; PCP Physician Assistant Medical; Visit Provider Student in an Organized Health Care Education/Training Program | DX: I42.9 Cardiomyopathy, unspecified (principal); I48.92 Unspecified atrial flutter | CPT/HCPCS: 99222; 99232; 99239 ==